=== PATIENT | male | born 1945 | race Caucasian/White ===

== ENCOUNTER 2018-04-27 06:10 | Inpatient (IN) | payer MEDICARE, OTHER, MEDICAID ==
[2018-04-27] MEDS: CEFAZOLIN 2 GM/50 ML (PMX) 50 ML IVPB (06:40)
[2018-04-27] MEDS: LACTATED RINGER'S 1,000 ML IV* (06:41)
[2018-04-27] MEDS ORDERED: ACETAMINOPHEN 1000 MG/100 ML IVPB (07:00)
[2018-04-27] MEDS ORDERED: CEFAZOLIN 1 GM INJ (07:00)
[2018-04-27] MEDS ORDERED: EPHEDrine SULFATE 50 MG/5 ML SYG (07:00)
[2018-04-27] MEDS ORDERED: GELATIN SIZE 100 SPONGE (07:45)
[2018-04-27] MEDS ORDERED: THROMBIN 5000 UNIT VIAL (07:45)
[2018-04-27] MEDS: BUPIVACAINE 0.25%/EPI (SDV) 30 ML INJ (07:45)
[2018-04-27] MEDS: POLYMYXIN/BACITRACIN 1L IRRIG (07:45)
[2018-04-27] MEDS ORDERED: ROCURONIUM 50 MG INJ ×2 (08:05→08:39)
[2018-04-27] MEDS ORDERED: PROPOFOL 20 ML (08:05)
[2018-04-27] MEDS ORDERED: HYDROmorphONE 2 MG/ML SYG (08:06)
[2018-04-27] MEDS ORDERED: MIDAZOLAM 1 MG/ML 2 ML INJ ×2 (08:06→12:37)
[2018-04-27] MEDS ORDERED: ONDANSETRON 4 MG INJ (08:06)
[2018-04-27] MEDS ORDERED: METOCLOPRAMIDE 10 MG INJ (08:06)
[2018-04-27] MEDS ORDERED: FENTAnyl 50 MCG/ML VIAL (08:10)
[2018-04-27] MEDS ORDERED: ONDANSETRON 4 MG INJ IV (12:00)
[2018-04-27] MEDS ORDERED: DIPHENHYDRAMINE 50 MG INJ IV (12:00)
[2018-04-27] MEDS ORDERED: hydrALAzine 20 MG INJ IV (12:00)
[2018-04-27] MEDS ORDERED: ALBUTEROL 0.083% (NEB) 2.5 MG/3 ML AMP HHN (12:00)
[2018-04-27] MEDS ORDERED: OXYCODONE/ACETAMINOPHEN (5/325) TAB PO ×2 (12:00)
[2018-04-27] MEDS ORDERED: LABETALOL HCL 20MG INJ IV (12:00)
[2018-04-27] MEDS ORDERED: MEPERIDINE 25 MG INJ IV (12:00)
[2018-04-27] MEDS ORDERED: HYDROmorphONE 1 MG/5 ML IV SYRINGE IV ×2 (12:00)
[2018-04-27] MEDS ORDERED: HYDROmorphONE 0.2 MG/ML PCA (12:45)
[2018-04-27] MEDS: HYDROmorphONE 0.2 MG/ML PCA IV (12:52)
[2018-04-27] MEDS: MIDAZOLAM 1 MG/ML 2 ML INJ IV (12:57)
[2018-04-27] MEDS: HYDROmorphONE 1 MG/5 ML IV SYRINGE IV ×2 (12:57→13:24)
[2018-04-27] MEDS ORDERED: HYDROCODONE/APAP (5/325) TAB PO ×2 (13:00)
[2018-04-27] MEDS ORDERED: PROCHLORPERAZINE 10 MG TAB PO (13:00)
[2018-04-27] MEDS ORDERED: NACL 0.9% 3 ML SYG IV (13:00)
[2018-04-27] MEDS ORDERED: NALOXONE (0.4 MG/ML) INJ IV (13:00)
[2018-04-27] MEDS: BENAZEPRIL 20 MG TAB PO (14:00)
[2018-04-27] MEDS ORDERED: GLUCOSE GEL 15 GRAM TUBE BUCCAL (14:30)
[2018-04-27] MEDS ORDERED: GLUCAGON 1 MG INJ IM (14:30)
[2018-04-27] MEDS ORDERED: DEXTROSE 50% 50 ML SYRINGE IV ×2 (14:30)
[2018-04-27] MEDS ORDERED: GLUCOSE GEL 15 GRAM TUBE PO ×2 (14:30)
[2018-04-27] MEDS: ALBUTEROL/IPRATROPIUM (NEB) 3 ML AMP HHN ×2 (16:00→23:19)
[2018-04-27] MEDS: SOD CHLORIDE 0.9% 1,000 ML IV (16:13)
[2018-04-27] MEDS: CEFAZOLIN 1 GM/50 ML (PMX) 50 ML IVPB ×2 (17:29→23:16)
[2018-04-27] MEDS: metFORMIN 500 MG TAB PO (17:29)
[2018-04-27] MEDS: INSULIN ASPART [NOVOLOG] 3 ML PEN SC ×2 (17:49→20:12)
[2018-04-27] MEDS: ROSUVASTATIN CALCIUM 40 MG TABLET PO (20:11)
[2018-04-27] MEDS: TAMSULOSIN (SR) 0.4 MG CAP PO (20:11)
[2018-04-27] MEDS: INSULIN GLARGINE [LANTus] (100 UNITS/ML) SYG SC (20:13)
[2018-04-28] MEDS: SOD CHLORIDE 0.9% 1,000 ML IV (01:36)
[2018-04-28] MEDS: ACCU-CHEK XX (01:37)
[2018-04-28] MEDS: PANTOPRAZOLE (EC) 40 MG TAB PO (05:05)
[2018-04-28] MEDS: CEFAZOLIN 1 GM/50 ML (PMX) 50 ML IVPB ×2 (05:05→12:10)
[2018-04-28 06:22] LABS: HEMATOCRIT 40.1 % (42.0-52.0); HEMOGLOBIN 13.3 g/dl (14.0-18.0)
[2018-04-28 06:43] LABS: MAGNESIUM 1.6 mg/dl (1.7-2.5)
[2018-04-28 06:43] LABS: PHOSPHORUS 3.7 mg/dl (2.5-4.9)
[2018-04-28 07:01] LABS: ANION GAP 12 (8-16); BLOOD UREA NITROGEN 13 mg/dl (7-20); CALCIUM 8.6 mg/dl (8.4-10.2); CARBON DIOXIDE 28 mmol/L (21-31); CHLORIDE 99 mmol/L (97-110); CREATININE 1.06 mg/dl (0.61-1.24); GLUCOSE 129 mg/dl (70-220); POTASSIUM 4.1 mmol/L (3.5-5.1); SODIUM 135 mmol/L (135-144)
[2018-04-28] MEDS: INSULIN ASPART [NOVOLOG] 3 ML PEN SC ×4 (07:50→21:01)
[2018-04-28] MEDS: ALBUTEROL/IPRATROPIUM (NEB) 3 ML AMP HHN ×3 (09:11→23:54)
[2018-04-28] MEDS: FENOFIBRATE 145 MG TAB PO (09:23)
[2018-04-28] MEDS: metFORMIN 500 MG TAB PO ×2 (09:23→17:42)
[2018-04-28] MEDS: BENAZEPRIL 20 MG TAB PO (09:24)
[2018-04-28] MEDS: FLUTICASONE/VILANTEROL 100-25 INH (09:24)
[2018-04-28] MEDS ORDERED: TAMSULOSIN (SR) 0.4 MG CAP PO (11:00)
[2018-04-28] MEDS: TAMSULOSIN (SR) 0.4 MG CAP PO ×2 (12:12→20:59)
[2018-04-28] MEDS: MAGNESIUM SULFATE 2 GM/50 ML 50 ML IVPB (12:49)
[2018-04-28] MEDS: AL HYDROX/MG HYDROX/SIMETH 30 ML CUP PO (17:41)
[2018-04-28] MEDS: HYDROmorphONE 0.5 MG/0.5 ML SYG IV ×2 (19:35→22:52)
[2018-04-28] MEDS: DOCUSATE SODIUM 100 MG CAP PO (20:59)
[2018-04-28] MEDS: ROSUVASTATIN CALCIUM 40 MG TABLET PO (20:59)
[2018-04-28] MEDS: METHOCARBAMOL 500 MG TAB PO (20:59)
[2018-04-28] MEDS: INSULIN GLARGINE [LANTus] (100 UNITS/ML) SYG SC (21:02)
[2018-04-28] MEDS: ACETAMINOPHEN 325 MG TAB PO (22:56)
[2018-04-29] MEDS: ACCU-CHEK XX (01:53)
[2018-04-29] MEDS: HYDROmorphONE 0.5 MG/0.5 ML SYG IV ×5 (02:52→20:47)
[2018-04-29] MEDS: ACETAMINOPHEN 325 MG TAB PO ×3 (03:59→16:58)
[2018-04-29 04:57] LABS: TROPONIN-I 0.042 ng/ml (0.000-0.120)
[2018-04-29] MEDS: PANTOPRAZOLE (EC) 40 MG TAB PO (06:02)
[2018-04-29 06:20] LABS: ADD MAN DIFF? NO
[2018-04-29 06:29] LABS: BASOPHILS % 0.3 % (0.0-2.0); EOSINOPHILS # 0.1 10^3/ul (0.0-0.5); EOSINOPHILS % 0.8 % (0.0-7.0); HEMATOCRIT 38.6 % (42.0-52.0); HEMOGLOBIN 12.5 g/dl (14.0-18.0); LYMPHOCYTES # 1.8 10^3/ul (0.8-2.9); LYMPHOCYTES % 14.4 % (15.0-51.0); MEAN CORPUSCULAR HEMOGLOBIN 28.6 pg (29.0-33.0); MEAN CORPUSCULAR HGB CONC 32.4 g/dl (32.0-37.0); MEAN CORPUSCULAR VOLUME 88.3 fl (82.0-101.0); MONOCYTE # 1.3 10^3/ul (0.3-0.9); MONOCYTES % 10.6 % (0.0-11.0); PLATELET COUNT 190 10^3/UL (140-415); RED BLOOD COUNT 4.37 10^6/ul (4.70-6.10); RED CELL DISTRIBUTION WIDTH 14.2 % (11.5-14.5)
[2018-04-29 06:29] LABS: WHITE BLOOD COUNT 12.4 10^3/ul (4.8-10.8)
[2018-04-29] MEDS: OXYCODONE/ACETAMINOPHEN (10/325) TAB PO ×2 (06:54→22:28)
[2018-04-29 07:44] LABS: ANION GAP 12 (8-16); BLOOD UREA NITROGEN 17 mg/dl (7-20); CALCIUM 8.9 mg/dl (8.4-10.2); CARBON DIOXIDE 31 mmol/L (21-31); CHLORIDE 97 mmol/L (97-110); CREATININE 1.17 mg/dl (0.61-1.24); GLUCOSE 233 mg/dl (70-220); MAGNESIUM 1.9 mg/dl (1.7-2.5); POTASSIUM 4.1 mmol/L (3.5-5.1); SODIUM 136 mmol/L (135-144)
[2018-04-29] MEDS: INSULIN ASPART [NOVOLOG] 3 ML PEN SC ×4 (07:55→21:06)
[2018-04-29] MEDS: metFORMIN 500 MG TAB PO ×2 (08:23→16:58)
[2018-04-29] MEDS: DOCUSATE SODIUM 100 MG CAP PO ×2 (08:24→20:52)
[2018-04-29] MEDS: TAMSULOSIN (SR) 0.4 MG CAP PO ×2 (08:24→20:52)
[2018-04-29] MEDS: FENOFIBRATE 145 MG TAB PO (08:24)
[2018-04-29] MEDS: BENAZEPRIL 20 MG TAB PO (08:25)
[2018-04-29] MEDS: PHENOL 1.4% SOLN 180 ML BTL MT (08:26)
[2018-04-29] MEDS: ALBUTEROL/IPRATROPIUM (NEB) 3 ML AMP HHN ×3 (08:41→23:45)
[2018-04-29] MEDS ORDERED: TAMSULOSIN (SR) 0.4 MG CAP PO (09:00)
[2018-04-29] MEDS: FLUTICASONE/VILANTEROL 100-25 INH (10:50)
[2018-04-29 12:01] LABS: TROPONIN-I 0.322 ng/ml (0.000-0.120)
[2018-04-29] MEDS: FLUTICASONE 0.05% 16 GM NAS SPRAY NASAL ×2 (15:49→20:51)
[2018-04-29] MEDS: ASPIRIN (EC) 81 MG TAB PO (17:36)
[2018-04-29 19:33] LABS: TROPONIN-I 0.439 ng/ml (0.000-0.120)
[2018-04-29] MEDS: ROSUVASTATIN CALCIUM 40 MG TABLET PO (20:52)
[2018-04-29] MEDS: INSULIN GLARGINE [LANTus] (100 UNITS/ML) SYG SC (21:06)
[2018-04-29] MEDS: ONDANSETRON 4 MG INJ IV (22:27)
[2018-04-29 23:58] LABS: TROPONIN-I 0.359 ng/ml (0.000-0.120)
[2018-04-30] MEDS: ACETAMINOPHEN 325 MG TAB PO ×2 (00:30→05:05)
[2018-04-30] MEDS: HYDROmorphONE 0.5 MG/0.5 ML SYG IV ×5 (00:35→20:31)
[2018-04-30] MEDS: ACCU-CHEK XX (02:53)
[2018-04-30] MEDS: PANTOPRAZOLE (EC) 40 MG TAB PO (05:02)
[2018-04-30 06:35] LABS: TROPONIN-I 0.278 ng/ml (0.000-0.120)
[2018-04-30] MEDS: FLUTICASONE/VILANTEROL 100-25 INH (08:05)
[2018-04-30] MEDS: FLUTICASONE 0.05% 16 GM NAS SPRAY NASAL ×2 (08:05→20:29)
[2018-04-30] MEDS: INSULIN ASPART [NOVOLOG] 3 ML PEN SC ×4 (08:09→20:46)
[2018-04-30] MEDS: DOCUSATE SODIUM 100 MG CAP PO ×2 (08:22→20:31)
[2018-04-30] MEDS: ASPIRIN (EC) 81 MG TAB PO (08:22)
[2018-04-30] MEDS: metFORMIN 500 MG TAB PO ×2 (08:22→16:59)
[2018-04-30] MEDS: FENOFIBRATE 145 MG TAB PO (08:22)
[2018-04-30] MEDS: BENAZEPRIL 10 MG TAB PO (08:23)
[2018-04-30] MEDS: ALBUTEROL/IPRATROPIUM (NEB) 3 ML AMP HHN ×3 (08:58→23:27)
[2018-04-30] MEDS: DEXAMETHASONE 10 MG/ML 1 ML INJ IV ×2 (10:31→20:30)
[2018-04-30] MEDS: OXYCODONE/ACETAMINOPHEN (10/325) TAB PO ×2 (10:31→17:09)
[2018-04-30] MEDS: METHOCARBAMOL 500 MG TAB PO (20:31)
[2018-04-30] MEDS: TAMSULOSIN (SR) 0.4 MG CAP PO (20:31)
[2018-04-30] MEDS: ROSUVASTATIN CALCIUM 40 MG TABLET PO (20:31)
[2018-04-30] MEDS: INSULIN GLARGINE [LANTus] (100 UNITS/ML) SYG SC (20:47)
[2018-05-01] MEDS: MAGNESIUM HYDROXIDE 30ML CUP PO (01:34)
[2018-05-01] MEDS: ACCU-CHEK XX (01:42)
[2018-05-01] MEDS: PANTOPRAZOLE (EC) 40 MG TAB PO (06:26)
[2018-05-01] MEDS: metFORMIN 500 MG TAB PO (06:27)
[2018-05-01 06:52] LABS: ADD MAN DIFF? NO
[2018-05-01 07:00] LABS: WHITE BLOOD COUNT 10.7 10^3/ul (4.8-10.8)
[2018-05-01 07:00] LABS: BASOPHILS % 0.1 % (0.0-2.0); HEMATOCRIT 37.7 % (42.0-52.0); HEMOGLOBIN 12.3 g/dl (14.0-18.0); LYMPHOCYTES # 1.4 10^3/ul (0.8-2.9); LYMPHOCYTES % 12.7 % (15.0-51.0); MEAN CORPUSCULAR HEMOGLOBIN 28.5 pg (29.0-33.0); MEAN CORPUSCULAR HGB CONC 32.6 g/dl (32.0-37.0); MEAN CORPUSCULAR VOLUME 87.3 fl (82.0-101.0); MEAN PLATELET VOLUME 11.2 fl (7.4-10.4); MONOCYTE # 0.7 10^3/ul (0.3-0.9); MONOCYTES % 6.1 % (0.0-11.0); NEUTROPHIL # 8.5 10^3/ul (1.6-7.5); NEUTROPHILS % 79.6 % (39.0-77.0); PLATELET COUNT 225 10^3/UL (140-415); RED BLOOD COUNT 4.32 10^6/ul (4.70-6.10)
[2018-05-01 07:35] LABS: ALANINE AMINOTRANSFERASE 27 IU/L (13-69); ALBUMIN 3.6 g/dl (3.3-4.9); ALBUMIN/GLOBULIN RATIO 1.12; ALKALINE PHOSPHATASE 44 IU/L (42-121); ANION GAP 16 (8-16); ASPARTATE AMINO TRANSFERASE 23 IU/L (15-46); BILIRUBIN,INDIRECT 0.4 mg/dl (0-1.1); BILIRUBIN,TOTAL 0.4 mg/dl (0.2-1.3); BLOOD UREA NITROGEN 30 mg/dl (7-20); CALCIUM 9.8 mg/dl (8.4-10.2); CARBON DIOXIDE 31 mmol/L (21-31); CHLORIDE 96 mmol/L (97-110); CREATININE 1.34 mg/dl (0.61-1.24); GLUCOSE 237 mg/dl (70-220); POTASSIUM 4.5 mmol/L (3.5-5.1); SODIUM 138 mmol/L (135-144); TOTAL PROTEIN 6.8 g/dl (6.1-8.1)
[2018-05-01] MEDS: INSULIN ASPART [NOVOLOG] 3 ML PEN SC ×2 (07:58→12:02)
[2018-05-01] MEDS: ASPIRIN (EC) 81 MG TAB PO (08:09)
[2018-05-01] MEDS: FLUTICASONE/VILANTEROL 100-25 INH (08:10)
[2018-05-01] MEDS: DOCUSATE SODIUM 100 MG CAP PO (08:10)
[2018-05-01] MEDS: METHOCARBAMOL 500 MG TAB PO (08:10)
[2018-05-01] MEDS: FENOFIBRATE 145 MG TAB PO (08:10)
[2018-05-01] MEDS: FLUTICASONE 0.05% 16 GM NAS SPRAY NASAL (08:10)
[2018-05-01] MEDS: BENAZEPRIL 10 MG TAB PO (08:10)
[2018-05-01] MEDS: DEXAMETHASONE 10 MG/ML 1 ML INJ IV (08:11)
[2018-05-01] MEDS: HYDROmorphONE 0.5 MG/0.5 ML SYG IV ×2 (08:30→16:57)
[2018-05-01] MEDS: ALBUTEROL/IPRATROPIUM (NEB) 3 ML AMP HHN ×2 (08:54→17:06)
[2018-05-01] MEDS: SOD CHLORIDE 0.9% 1,000 ML IV (11:23)
[2018-05-01] MEDS: OXYCODONE/ACETAMINOPHEN (10/325) TAB PO ×2 (12:03→15:48)
== END 2018-05-01 17:36 | disposition home health service (06) | DRG 519 ==
LOC: REC 06:10 → MS1 13:45 → TEL 04-29 03:17
PROVIDERS: Orthopaedic Surgery
PROC: 0SB20ZZ Excision of Lumbar Vertebral Disc, Open Approach (ICD-10-PCS; principal; 2018-04-27 08:00)
PROC: 01NB0ZZ Release Lumbar Nerve, Open Approach (ICD-10-PCS; 2018-04-27 08:00)
PROC: 00BY0ZZ Excision of Lumbar Spinal Cord, Open Approach (ICD-10-PCS; 2018-04-27 08:00)
PROC: 00U20KZ Supplement Dura Mater with Nonautologous Tissue Substitute, Open Approach (ICD-10-PCS; 2018-04-27 08:00)
DX: M48.062 Spinal stenosis, lumbar region with neurogenic claudication (principal); I42.2 Other hypertrophic cardiomyopathy; N17.9 Acute kidney failure, unspecified; I47.1 Supraventricular tachycardia; G97.41 Accidental puncture or laceration of dura during a procedure; M51.16 Intervertebral disc disorders with radiculopathy, lumbar region; M71.38 Other bursal cyst, other site; E11.69 Type 2 diabetes mellitus with other specified complication; I10 Essential (primary) hypertension; N40.0 Benign prostatic hyperplasia without lower urinary tract symptoms; J44.9 Chronic obstructive pulmonary disease, unspecified; M17.12 Unilateral primary osteoarthritis, left knee; I34.0 Nonrheumatic mitral (valve) insufficiency; E66.9 Obesity, unspecified; Z68.30 Body mass index [BMI] 30.0-30.9, adult; Z79.02 Long term (current) use of antithrombotics/antiplatelets; Z79.4 Long term (current) use of insulin; R33.9 Retention of urine, unspecified; I48.91 Unspecified atrial fibrillation; K21.9 Gastro-esophageal reflux disease without esophagitis; E78.00 Pure hypercholesterolemia, unspecified; I25.10 Atherosclerotic heart disease of native coronary artery without angina pectoris; Y83.8 Other surgical procedures as the cause of abnormal reaction of the patient, or of later complication, without mention of misadventure at the time of the procedure; Y92.234 Operating room of hospital as the place of occurrence of the external cause
CPT/HCPCS: 72100; 80048; 80053; 82962; 83735; 84100; 84484; 85014; 85018; 85025; 88304; 93005; 93306; 94640; 94664; 97110; 97116; 97161; 97530

== ENCOUNTER 2018-05-10 15:50 | Inpatient (IN) | payer MEDICARE, OTHER ==
[2018-05-10] MEDS: CEFAZOLIN 2 GM/50 ML (PMX) 50 ML IVPB (06:00)
[~2018-05-10 15:50] MED LIST: CEFAZOLIN 1 GM INJ; SUCCINYLCHOLINE CHLORIDE 100 MG/5 ML SYG IV
[2018-05-10] MEDS ORDERED: GELATIN SIZE 100 SPONGE ×2 (15:51→15:52)
[2018-05-10 16:06] LABS: ADD MAN DIFF? NO
[2018-05-10 16:09] LABS: BASOPHIL # 0.1 10^3/ul (0.0-0.1); BASOPHILS % 0.8 % (0.0-2.0); EOSINOPHILS # 0.2 10^3/ul (0.0-0.5); EOSINOPHILS % 1.7 % (0.0-7.0); HEMATOCRIT 41.4 % (42.0-52.0); HEMOGLOBIN 13.7 g/dl (14.0-18.0); LYMPHOCYTES # 3.1 10^3/ul (0.8-2.9); LYMPHOCYTES % 33.8 % (15.0-51.0); MEAN CORPUSCULAR HEMOGLOBIN 28.7 pg (29.0-33.0); MEAN CORPUSCULAR HGB CONC 33.1 g/dl (32.0-37.0); MEAN CORPUSCULAR VOLUME 86.6 fl (82.0-101.0); MONOCYTE # 0.8 10^3/ul (0.3-0.9); MONOCYTES % 8.6 % (0.0-11.0); NEUTROPHIL # 4.9 10^3/ul (1.6-7.5); NEUTROPHILS % 53.4 % (39.0-77.0); PLATELET COUNT 355 10^3/UL (140-415); RED BLOOD COUNT 4.78 10^6/ul (4.70-6.10); RED CELL DISTRIBUTION WIDTH 13.7 % (11.5-14.5)
[2018-05-10 16:09] LABS: WHITE BLOOD COUNT 9.3 10^3/ul (4.8-10.8)
[2018-05-10] MEDS ORDERED: POLYMYXIN/BACITRACIN 1L IRRIG (16:20)
[2018-05-10] MEDS: LACTATED RINGER'S 1,000 ML IV* (16:30)
[2018-05-10 16:32] LABS: ANION GAP 12 (8-16); BLOOD UREA NITROGEN 16 mg/dl (7-20); CALCIUM 9.7 mg/dl (8.4-10.2); CARBON DIOXIDE 32 mmol/L (21-31); CHLORIDE 101 mmol/L (97-110); CREATININE 1.12 mg/dl (0.61-1.24); GLUCOSE 86 mg/dl (70-220); POTASSIUM 4.4 mmol/L (3.5-5.1); SODIUM 141 mmol/L (135-144)
[2018-05-10 16:36] LABS: INR 0.95; PROTIME 12.8 Sec (11.9-14.9)
[2018-05-10 16:37] LABS: PARTIAL THROMBOPLASTIN TIME 29.9 Sec (25.0-35.0)
[2018-05-10] MEDS ORDERED: LIDOCAINE 2% (SDV) 5 ML INJ (16:59)
[2018-05-10] MEDS ORDERED: ROCURONIUM 50 MG INJ (16:59)
[2018-05-10] MEDS ORDERED: MIDAZOLAM 1 MG/ML 2 ML INJ (16:59)
[2018-05-10] MEDS ORDERED: NEOSTIGMINE 3 MG/3 ML SYRINGE (16:59)
[2018-05-10] MEDS ORDERED: FENTAnyl 50 MCG/ML VIAL (16:59)
[2018-05-10] MEDS ORDERED: PROPOFOL 20 ML (16:59)
[2018-05-10] MEDS ORDERED: GLYCOPYRROLATE 0.4 MG INJ (16:59)
[2018-05-10] MEDS ORDERED: HYDROmorphONE 1 MG/5 ML IV SYRINGE IV ×3 (17:00)
[2018-05-10] MEDS ORDERED: MIDAZOLAM 1 MG/ML 2 ML INJ IV (17:00)
[2018-05-10] MEDS ORDERED: morphine (1 MG/ML) 10ML SYRINGE IV ×3 (17:00)
[2018-05-10] MEDS ORDERED: OXYCODONE/ACETAMINOPHEN (5/325) TAB PO ×2 (17:00)
[2018-05-10] MEDS ORDERED: EPHEDrine SULFATE 50 MG/5 ML SYG IV (17:00)
[2018-05-10] MEDS ORDERED: MEPERIDINE 25 MG INJ IV (17:00)
[2018-05-10] MEDS ORDERED: LABETALOL HCL 20MG INJ IV (17:00)
[2018-05-10] MEDS ORDERED: FENTAnyl 50 MCG/ML VIAL IV (17:00)
[2018-05-10] MEDS ORDERED: DIPHENHYDRAMINE 50 MG INJ IV (17:00)
[2018-05-10] MEDS ORDERED: hydrALAzine 20 MG INJ IV (17:00)
[2018-05-10] MEDS ORDERED: ONDANSETRON 4 MG INJ IV ×2 (17:00→20:00)
[2018-05-10] MEDS ORDERED: ATROPINE 1 MG/10 ML SYRINGE IV (17:00)
[2018-05-10] MEDS: SURGIFOAM POWDER 1 GM KIT (17:46)
[2018-05-10] MEDS: THROMBIN 5000 UNIT VIAL (17:46)
[2018-05-10] MEDS: BUPIVACAINE 0.25%/EPI (SDV) 30 ML INJ (17:46)
[2018-05-10] MEDS ORDERED: ACETAMINOPHEN 325 MG TAB PO (20:00)
[2018-05-10] MEDS ORDERED: PROCHLORPERAZINE 10 MG TAB PO (20:00)
[2018-05-10] MEDS ORDERED: NACL 0.9% 3 ML SYG IV (20:00)
[2018-05-10] MEDS ORDERED: AL HYDROX/MG HYDROX/SIMETH 30 ML CUP PO (20:00)
[2018-05-10] MEDS ORDERED: NALOXONE (0.4 MG/ML) INJ IV (20:00)
[2018-05-10] MEDS: HYDROmorphONE 0.2 MG/ML PCA IV (20:18)
[2018-05-10] MEDS: FENTAnyl 50 MCG/ML VIAL IV (20:49)
[2018-05-10] MEDS: INSULIN GLARGINE [LANTus] (100 UNITS/ML) SYG SC (22:30)
[2018-05-10] MEDS ORDERED: GLUCAGON 1 MG INJ IM (22:30)
[2018-05-10] MEDS ORDERED: GLUCOSE GEL 15 GRAM TUBE BUCCAL (22:30)
[2018-05-10] MEDS ORDERED: GLUCOSE GEL 15 GRAM TUBE PO ×2 (22:30)
[2018-05-10] MEDS ORDERED: DEXTROSE 50% 50 ML SYRINGE IV ×2 (22:30)
[2018-05-10] MEDS ORDERED: TAMSULOSIN (SR) 0.4 MG CAP PO (23:00)
[2018-05-10] MEDS: DEXTROSE 5%-0.9% NACL 1,000 ML IV (23:01)
[2018-05-11] MEDS: INSULIN ASPART [NOVOLOG] 3 ML PEN SC ×5 (01:28→20:48)
[2018-05-11] MEDS: ROSUVASTATIN CALCIUM 40 MG TABLET PO ×2 (01:29→20:45)
[2018-05-11] MEDS: CEFAZOLIN 1 GM/50 ML (PMX) 50 ML IVPB ×4 (01:42→17:52)
[2018-05-11] MEDS: TAMSULOSIN (SR) 0.4 MG CAP PO ×2 (01:42→20:45)
[2018-05-11] MEDS: INSULIN GLARGINE [LANTus] (100 UNITS/ML) SYG SC ×2 (01:56→10:54)
[2018-05-11] MEDS: ACCU-CHEK XX (02:00)
[2018-05-11] MEDS: HYDROmorphONE 0.2 MG/ML PCA IV (02:33)
[2018-05-11 05:56] LABS: HEMATOCRIT 38.5 % (42.0-52.0); HEMOGLOBIN 12.8 g/dl (14.0-18.0)
[2018-05-11 06:10] LABS: ANION GAP 15 (8-16); BLOOD UREA NITROGEN 16 mg/dl (7-20); CALCIUM 9.2 mg/dl (8.4-10.2); CARBON DIOXIDE 29 mmol/L (21-31); CHLORIDE 97 mmol/L (97-110); CREATININE 0.96 mg/dl (0.61-1.24); GLUCOSE 216 mg/dl (70-220); POTASSIUM 5.3 mmol/L (3.5-5.1); SODIUM 136 mmol/L (135-144)
[2018-05-11 06:22] LABS: MAGNESIUM 1.5 mg/dl (1.7-2.5)
[2018-05-11] MEDS ORDERED: SOD CHLORIDE 0.9% 1,000 ML IV (08:30)
[2018-05-11] MEDS: FENOFIBRATE 145 MG TAB PO (08:40)
[2018-05-11] MEDS: DOCUSATE SODIUM 100 MG CAP PO ×2 (08:40→20:45)
[2018-05-11] MEDS: BENAZEPRIL 20 MG TAB PO (08:41)
[2018-05-11] MEDS: metFORMIN 500 MG TAB PO (08:42)
[2018-05-11] MEDS: MAGNESIUM SULFATE 3 GM in DEXTROSE 5% 100 ML IVPB (10:46)
[2018-05-11] MEDS ORDERED: OXYCODONE/ACETAMINOPHEN (10/325) TAB PO (12:00)
[2018-05-11] MEDS: ACETAMINOPHEN 325 MG TAB PO (12:57)
[2018-05-11] MEDS: HYDROmorphONE 0.5 MG/0.5 ML SYG IV ×3 (15:40→23:39)
[2018-05-11 18:46] LABS: ADD MAN DIFF? NO
[2018-05-11 18:49] LABS: BASOPHIL # 0.1 10^3/ul (0.0-0.1); BASOPHILS % 0.4 % (0.0-2.0); EOSINOPHILS % 0.2 % (0.0-7.0); HEMATOCRIT 40.1 % (42.0-52.0); HEMOGLOBIN 12.9 g/dl (14.0-18.0); LYMPHOCYTES % 17.7 % (15.0-51.0); MEAN CORPUSCULAR HGB CONC 32.2 g/dl (32.0-37.0); MEAN PLATELET VOLUME 9.5 fl (7.4-10.4); MONOCYTE # 1.4 10^3/ul (0.3-0.9); MONOCYTES % 8.4 % (0.0-11.0); NEUTROPHIL # 12.4 10^3/ul (1.6-7.5); NEUTROPHILS % 72.2 % (39.0-77.0); PLATELET COUNT 430 10^3/UL (140-415); RED BLOOD COUNT 4.61 10^6/ul (4.70-6.10); RED CELL DISTRIBUTION WIDTH 13.8 % (11.5-14.5)
[2018-05-11 18:49] LABS: WHITE BLOOD COUNT 17.1 10^3/ul (4.8-10.8)
[2018-05-11] MEDS: LORAZEPAM 2 MG INJ IV (20:56)
[2018-05-11] MEDS: VANCOMYCIN 1.5 GM in SOD CHLORIDE 0.9% 250 ML IVPB (21:45)
[2018-05-12] MEDS: ACCU-CHEK XX (02:00)
[2018-05-12] MEDS: BACLOFEN 10 MG TAB PO (03:00)
[2018-05-12] MEDS: HYDROmorphONE 0.5 MG/0.5 ML SYG IV ×4 (03:20→13:06)
[2018-05-12] MEDS ORDERED: VANCOMYCIN IV PER PHARMACY XX (07:00)
[2018-05-12] MEDS: INSULIN ASPART [NOVOLOG] 3 ML PEN SC ×2 (07:50→12:55)
[2018-05-12] MEDS: LORAZEPAM 2 MG INJ IV (07:53)
[2018-05-12] MEDS: metFORMIN 500 MG TAB PO (08:33)
[2018-05-12] MEDS: VANCOMYCIN 1 GM 250 ML IVPB (08:34)
[2018-05-12] MEDS: DOCUSATE SODIUM 100 MG CAP PO (08:36)
[2018-05-12] MEDS: FENOFIBRATE 145 MG TAB PO (08:37)
[2018-05-12] MEDS: BENAZEPRIL 20 MG TAB PO (08:37)
[2018-05-12 08:39] LABS: ADD MAN DIFF? NO
[2018-05-12 08:50] LABS: BASOPHIL # 0.1 10^3/ul (0.0-0.1); BASOPHILS % 0.6 % (0.0-2.0); EOSINOPHILS # 0.1 10^3/ul (0.0-0.5); EOSINOPHILS % 0.6 % (0.0-7.0); HEMATOCRIT 37.9 % (42.0-52.0); HEMOGLOBIN 12.1 g/dl (14.0-18.0); LYMPHOCYTES # 2.9 10^3/ul (0.8-2.9); LYMPHOCYTES % 23.2 % (15.0-51.0); MEAN CORPUSCULAR HEMOGLOBIN 27.8 pg (29.0-33.0); MEAN CORPUSCULAR HGB CONC 31.9 g/dl (32.0-37.0); MEAN CORPUSCULAR VOLUME 87.1 fl (82.0-101.0); MEAN PLATELET VOLUME 9.5 fl (7.4-10.4); MONOCYTE # 1.1 10^3/ul (0.3-0.9); MONOCYTES % 8.9 % (0.0-11.0); NEUTROPHIL # 8.3 10^3/ul (1.6-7.5); NEUTROPHILS % 65.7 % (39.0-77.0); PLATELET COUNT 357 10^3/UL (140-415); RED BLOOD COUNT 4.35 10^6/ul (4.70-6.10); RED CELL DISTRIBUTION WIDTH 13.9 % (11.5-14.5)
[2018-05-12 08:50] LABS: WHITE BLOOD COUNT 12.5 10^3/ul (4.8-10.8)
[2018-05-12 09:10] LABS: ANION GAP 11 (8-16); BLOOD UREA NITROGEN 16 mg/dl (7-20); CALCIUM 8.9 mg/dl (8.4-10.2); CARBON DIOXIDE 30 mmol/L (21-31); CHLORIDE 101 mmol/L (97-110); CREATININE 0.99 mg/dl (0.61-1.24); GLUCOSE 128 mg/dl (70-220); MAGNESIUM 1.7 mg/dl (1.7-2.5); PHOSPHORUS 3.4 mg/dl (2.5-4.9); SODIUM 138 mmol/L (135-144)
== END 2018-05-12 15:15 | disposition home or self-care (01) | DRG 519 ==
LOC: REC 15:50 → MS1 21:33
PROC: 0SB20ZZ Excision of Lumbar Vertebral Disc, Open Approach (ICD-10-PCS; principal; 2018-05-10 16:55)
PROC: 0SC00ZZ Extirpation of Matter from Lumbar Vertebral Joint, Open Approach (ICD-10-PCS; 2018-05-10 16:55)
DX: M51.16 Intervertebral disc disorders with radiculopathy, lumbar region (principal); M96.840 Postprocedural hematoma of a musculoskeletal structure following a musculoskeletal system procedure; I42.2 Other hypertrophic cardiomyopathy; E78.5 Hyperlipidemia, unspecified; I25.10 Atherosclerotic heart disease of native coronary artery without angina pectoris; N40.0 Benign prostatic hyperplasia without lower urinary tract symptoms; I50.9 Heart failure, unspecified; E11.9 Type 2 diabetes mellitus without complications; M19.90 Unspecified osteoarthritis, unspecified site; Z79.02 Long term (current) use of antithrombotics/antiplatelets; Z79.84 Long term (current) use of oral hypoglycemic drugs; Y83.8 Other surgical procedures as the cause of abnormal reaction of the patient, or of later complication, without mention of misadventure at the time of the procedure
CPT/HCPCS: 80048; 82962; 83735; 84100; 84132; 85014; 85018; 85025; 85610; 85730; 86850; 86900; 86901; 86920; 87070; 87075; 87102; 87116; 88304; 97116; 97161; 97530